=== PATIENT | female | born 1940 | race Caucasian/White ===

== ENCOUNTER → 2018-08-09 | Day surgery (SDC) | payer OTHER ==
--- NOTE | 2018-08-09 12:51 | RAD REPORT ---
EXAM DESCRIPTION: US - Guided FNA Non Breast - 08/09/2018 11:51 am CLINICAL HISTORY: ICD E 04.2 COMPARISON: June 2018 TECHNIQUE: Risks, benefits alternatives of procedure were explained to the patient informed consent obtained. The prior ultrasound was reviewed. Under sonographic guidance the 3.5 centimeter nodule within the le ft lobe was localized. Skin and subcutaneous tissues anesthetized lidocaine. Multiple 25 gauge needle passes were obtained into the left thyroid nodule and given to pathology. The patient experienced no immediate complication. IMPRESSION: Fine-needle aspiration of the dominant nodule within left lobe thyroid gland
== END ==
LOC: FNA 10:40
PROVIDERS: ATTEND Otolaryngology
PROC: 0G9G3ZX Drainage of Left Thyroid Gland Lobe, Percutaneous Approach, Diagnostic (ICD-10-PCS; principal; 2018-08-09)
PROC: BG44ZZZ Ultrasonography of Thyroid Gland (ICD-10-PCS; 2018-08-09)
DX: E04.2 Nontoxic multinodular goiter (principal)
CPT/HCPCS: 88161

== ENCOUNTER 2021-07-17 10:16 | Emergency (ER) | payer OTHER ==
--- NOTE | 2021-07-17 11:20 | RAD REPORT ---
EXAM DESCRIPTION: CT - Head C Spine Mpr Wo Con - 07/17/2021 10:45 am CLINICAL HISTORY: Head and neck injury status post fall. Head and neck pain COMPARISON: None. TECHNIQUE: Computed axial tomography of the head and cervical spine was obtained. Sagittal and coronal reconstruction was performed. All CT scans are performed using dose optimization technique as appropriate and may include automated exposure control or mA/KV adjustment according to patient size. FINDINGS: An intracranial bleed is not seen. The ventricles are normal in caliber. 5.2 centimeter fluid collection left temporal fossa has the appearance of an arachnoid cyst. A cervical fracture is not visualized. No dislocation is noted. Spondylosis involves the cervical spi ne 13 millimeter nodule right lobe. Thyroid 30 millimeter nodule left lobe thyroid. These were described on a 2018 ultrasound IMPRESSION: No acute intracranial abnormality is seen. A cervical fracture is not visualized. If the patient continues to have symptoms to suggest intracra nial /spinal cord pathology then MRI would be recommended
--- NOTE | 2021-07-17 11:35 | RAD REPORT ---
EXAM DESCRIPTION: CT - Facial Bones W/ Mpr - 07/17/2021 10:45 am CLINICAL HISTORY: Facial injury status post fall with facial pain COMPARISON: None TECHNIQUE: Computed axial tomography of the face was obtained. Coronal and sagittal reconstruction w as performed. All CT scans are performed using dose optimization technique as appropriate and may include automated exposure control or mA/KV adjustment according to patient size. FINDINGS: Left cheek/preseptal hematoma. Moderately displaced fractures involve the left zygomaticosphenoid suture. Mildly displaced fracture involves the zygomaticotemporal suture A TMJ dislocation is not noted. The globes are intact. Small amount of fluid within the sphenoid sinus IMPRESSION: Fractures involve the left zygomaticosphenoid and zygomaticotemporal sutures .
[2021-07-17] MEDS ORDERED: TETANUS & DIPHTHERIA TOX,ADULT 0.5 ML VIAL ONE (11:38)
[2021-07-17] MEDS ORDERED: LIDOCAINE 1% W/EPI 1:100,000 MDV 50 ML VIAL ONE (11:38)
--- NOTE | 2021-07-17 12:10 | ER ---
Nurse's Notes [facility] Name: Kathy Fuentes Age: 81 yrs Sex: Female : 1940 Arrival Date: 07/17/2021 Time: 10:21 Bed 20 Private MD: Adrian Mccormick V Diagnosis: Laceration without foreign body of left eyelid and periocular area;Displaced fractures involving the left zygomaticosphenoid and zygomaticotemporal sutures Presentation: 07/17 10:25 Chief complaint: Patient states: pt denies LOC. Chief complaint: Patient states: i tw2 tripped over some small genevieve and fell on the concrete hitting my face on the LEFT eye brow. and the cut is just too deep. i fell about 2 hours ago. Coronavirus screen: At this time, the client does not indicate any symptoms associated with coronavirus-19. Ebola Screen: Patient denies travel to an Ebola-affected area in the 21 days before illness onset. Initial Sepsis Screen: Does the patient meet any 2 criteria? No. Patient's initial sepsis screen is negative. Does the patient have a suspected source of infection? No. Patient's initial sepsis screen is negative. Risk Assessment: Do you want to hurt yourself or someone else? Patient reports no desire to harm self or others. Onset of symptoms was July 17, 2021. 10:25 Method Of Arrival: Ambulatory tw2 10:25 Acuity: SEGUNDO 3 tw2 10:29 Note provider SAMMY Akhtar in triage room performing assessment. tw2 Triage Assessment: 10:27 General: Appears in no apparent distress. slender, well groomed, Behavior is calm, tw2 cooperative, appropriate for age. Pain: Denies pain. EENT: swelling noted to left eye area and cheek. with laceration noted to LEFT eye brow. bleeding controlled with bandaid pt had applied prior to arrival.. Historical: - Allergies: 10:38 Levofloxacin; tw2 - Home Meds: 10:28 "vitamins" [Active]; tw2 - PMHx: 10:38 None; tw2 - PSHx: 10:28 hysterectomy; "partial"; Cholecystectomy; tw2 - Immunization history:: Last tetanus immunization: unknown. - Social history:: Smoking status: . Screenin:30 Abuse screen: Denies threats or abuse. Nutritional screening: No deficits noted. tw2 Tuberculosis screening: No symptoms or risk factors identified. Fall Risk None identified. Assessment: 10:56 Reassessment: Patient presents to ED with laceration to left eyebrow secondary to slip sl2 and fall. General: Appears in no apparent distress. well groomed, well developed, Behavior is calm, cooperative, appropriate for age. Pain: Complains of pain in Head and neck Pain does not radiate. Pain currently is 2 out of 10 on a pain scale. at worst was 5 out of 10 on a pain scale. level that patient reports is acceptable is 2 out of 10 on a pain scale. Neuro: No deficits noted. Level of Consciousness is awake, alert, obeys commands, Oriented to person, place, time, situation, Appropriate for age Boot Liner Maker are equal bilaterally Moves all extremities. Gait is steady, Speech is normal, Facial symmetry appears normal. Cardiovascular: No deficits noted. Respiratory: No deficits noted. GI: No deficits noted. No signs and/or symptoms were reported involving the gastrointestinal system. : No deficits noted. No signs and/or symptoms were reported regarding the genitourinary system. EENT: No deficits noted. No signs and/or symptoms were reported regarding the EENT system. Derm: No deficits noted. No signs and/or symptoms reported regarding the dermatologic system. Derm: Wound noted left eyebrow Wound is Laceration. Vital Signs: 10:25 BP 181 / 81; Pulse 81; Resp 17; Temp 98.3; Pulse Ox 100% on R/A; tw2 11:51 BP 179 / 85; Pulse 73; Resp 17; Pulse Ox 99% on R/A; mh5 12:00 BP 153 / 81; Pulse 75; Resp 18; Temp 98.2(O); Pulse Ox 99% on R/A; sl2 ED Course: 10:21 Patient arrived in ED. mr 10:22 Adrian Mccormick MD is Private Physician. mr 10:26 Hel[facility] Hopper [facility]C [facility] kb 10:26 Karen Noel MD is Attending Physician. kb 10:27 Triage completed. tw2 10:28 Arm band placed on. tw2 10:30 Patient maintains SpO2 saturation greater than 95% on room air. tw2 10:38 pt returned to ER main lobby at this time pending imaging. tw2 10:45 CT Head C Spine In Process Unspecified. EDMS 10:45 CT Facial Bones W/O Con In Process Unspecified. EDMS 10:55 Bailey Reyse, RN is Primary Nurse. sl2 10:57 Patient has correct armband on for positive identification. Bed in low position. Call mh5 light in reach. Side rails up X 1. Adult w/ patient. Pulse ox on. NIBP on. 11:40 Primary Nurse role handed off by Bailey Reyes, MARK 7 11:40 Mike Garsia, RN is Primary Nurse. [facility] 12:27 Assist provider with laceration repair. Patient did not have IV access during this 2 emergency room visit. Administered Medications: 11:43 Drug: Tetanus-Diphtheria Toxoid Adult 0.5 ml {Drug And Alcohol Counsellor: [employer]. Exp: jl7 01/21/2023. Lot #: [id number]. } Route: IM; Site: right deltoid; 12:25 Follow up: Response: No adverse reaction sl2 12:14 Drug: Augmentin (Amoxicillin-Clavulanate) 875 mg Route: PO; sl2 12:25 Follow up: Response: No adverse reaction 2 Outcome: 12:10 Discharge ordered by MD. kb 12:27 Discharged to home with family. sl2 12:27 Condition: stable 12:27 Discharge instructions given to patient, family, Instructed on discharge instructions, follow up and referral plans. no drinking with medication, medication usage, Demonstrated understanding of instructions, medications, wound care, Prescriptions given X 2. 12:27 Patient left the ED. 2 Signatures: Dispatcher [employer] EDOK Helene Hopper, SAMMY-Jo SPECTRAL SCIENTIST-Chon Hanksa Tabitha kumari Jessa Lew, RN RN 2 Belem Hung [facility] Mike Garsia, MARK RN jl7 Bailey Reyes, RN RN 2 Corrections: (The following items were deleted from the chart) 10:30 10:25 Chief complaint: Patient states: i tripped over some small genevieve and fell on tw2 the concrete hitting my face on the LEFT eye brow. and the cut is just too deep. tw2 10:30 10:27 EENT: swelling noted to left eye area and cheek. with laceration noted to LEFT tw2 eye brow.. tw2 10:38 10:25 Acuity: SEGUNDO 4 tw2 10:38 10:38 Allergies: No Known Allergies; 10 10:38 Allergies: Levaquin;
--- NOTE | 2021-07-17 12:10 | EDPHYS ---
Physician Documentation [facility] Name: Kathy Fuentes Age: 81 yrs Sex: Female : 1940 Arrival Date: 07/17/2021 Time: 10:21 Bed 20 Private MD: Adrian Mccormick V ED Physician Karen Noel HPI: 07/17 12:12 This 81 yrs old Female presents to ER via Ambulatory with complaints of Fall kb Injury, Laceration To Scalp/Face. 12:12 Details of fall: The patient fell from an upright position, while walking. Onset: The kb symptoms/episode began/occurred 2 hour(s) ago. Associated injuries: The patient sustained injury to the head, contusion, hematoma, laceration, 2 cm(s), of the left supraorbital ridge, pain, swelling, tenderness. Severity of symptoms: At their worst the symptoms were moderate, in the emergency department the symptoms are unchanged. The patient has not experienced similar symptoms in the past. The patient has not recently seen a physician. Pt states she slipped on the [place] outside and fell, hitting eye. States "I wasn't going to come in but the cut looked deep like I might need stitches." Denies any visual changes. EOM intact. Historical: - Allergies: 10:38 Levofloxacin; tw2 - Home Meds: 10:28 "vitamins" [Active]; tw2 - PMHx: 10:38 None; tw2 - PSHx: 10:28 hysterectomy; "partial"; Cholecystectomy; tw2 - Immunization history:: Last tetanus immunization: unknown. - Social history:: Smoking status: . ROS: 11:31 Constitutional: Negative for fever, chills, and weight loss. kb 11:31 Skin: Positive for ecchymosis, laceration(s), swelling, of the left eye. 11:31 All other systems are negative. Exam: 11:31 Constitutional: This is a well developed, well nourished patient who is awake, alert, kb and in no acute distress. ENT: Moist Mucous membranes Respiratory: Respirations even and unlabored. No increased work of breathing, no retractions or nasal flaring. Abdomen/GI: Soft, non-tender. No distention MS/ Extremity: Pulses equal, no cyanosis. Neurovascular intact. Full, normal range of motion. Neuro: Awake and alert, GCS 15, oriented to person, place, time, and situation. Moves all extremities. Normal gait. Psych: Awake, alert, with orientation to person, place and time. Behavior, mood, and affect are within normal limits. 11:31 Skin: injury, laceration(s), the wound is approximately 2 cm(s), of the left supraorbital ridge, that can be described as clean, no foreign body, linear, without bleeding. Vital Signs: 10:25 BP 181 / 81; Pulse 81; Resp 17; Temp 98.3; Pulse Ox 100% on R/A; tw2 11:51 BP 179 / 85; Pulse 73; Resp 17; Pulse Ox 99% on R/A; mh5 12:00 BP 153 / 81; Pulse 75; Resp 18; Temp 98.2(O); Pulse Ox 99% on R/A; sl2 Laceration: 12:07 Wound Repair of 2cm ( 0.8in ) subcutaneous laceration to left supraorbital ridge. kb Linear shaped.. Distal neuro/vascular/tendon intact. Anesthesia: Wound infiltrated with 2 mls of 1% lidocaine w/ Epi. Wound prep: Moderate cleansing with betadine by me, Wound irrigation with saline by me. Skin closed with 4 5-0 fast absorbing gut using simple sutures and sterile technique. Patient tolerated well. MDM: 10:26 Patient medically screened. 11:31 Data reviewed: vital signs, nurses notes. Data interpreted: Pulse oximetry: on room air kb is 100 %. Interpretation: normal. Counseling: I had a detailed discussion with the patient and/or guardian regarding: the historical points, exam findings, and any diagnostic results supporting the discharge/admit diagnosis, radiology results, the need for outpatient follow up, a family practitioner, to return to the emergency department if symptoms worsen or persist or if there are any questions or concerns that arise at home. 12:11 ED course: Discussed case with ERP, recommends outpatient treatment. Discussed plan of kb care including follow up with OMFS with pt and family. All in agreement with plan. 12:13 ED course: RESIDENTIAL SOLAR CONSULTANT aware reviewed. No prescriptions found. kb 07/17 10:27 Order name: CT Head C Spine; Complete Time: 11:23 kb 07/17 10:27 Order name: CT Facial Bones W/O Con; Complete Time: 11:36 kb 07/17 10:27 Order name: Dressing - Wound; Complete Time: 12:25 kb 07/17 10:27 Order name: Gloves, Sterile; Complete Time: 10:53 kb 07/17 10:27 Order name: Setup Suture Tray; Complete Time: 10:53 kb Administered Medications: 11:43 Drug: Tetanus-Diphtheria Toxoid Adult 0.5 ml {Podiatrist: [employer]. Exp: jl7 01/21/2023. Lot #: [id number]. } Route: IM; Site: right deltoid; 12:25 Follow up: Response: No adverse reaction sl2 12:14 Drug: Augmentin (Amoxicillin-Clavulanate) 875 mg Route: PO; sl2 12:25 Follow up: Response: No adverse reaction sl2 Disposition Summary: 07/17/21 12:10 Discharge Ordered Location: Home kb Condition: Stable kb Diagnosis - Laceration without foreign body of left eyelid and periocular area kb - Displaced fractures involving the left zygomaticosphenoid and zygomaticotemporal kb sutures Followup: kb - With: Emergency Department - When: As needed - Reason: Worsening of condition Followup: kb - With: Private Physician - When: 2 - 3 days - Reason: Recheck today's complaints, Continuance of care, Re-evaluation by your physician Discharge Instructions: - Discharge Summary Sheet kb - Zygoma Fracture kb - Facial Laceration, [id number] kb Forms: - Medication Reconciliation Form kb - Thank You Letter kb - Antibiotic Education kb - Prescription Opioid Use kb Prescriptions: - Augmentin 875-125 mg Oral Tablet - take 1 tablet by ORAL route every 12 hours for 10 days; 20 tablet; Refills: 0, kb Product Selection Permitted - Tramadol 50 mg Oral Tablet - take 1 tablet by ORAL route every 8 hours as needed; 12 tablet; Refills: 0, kb Product Selection Permitted Addendum: 07/19/2021 08:35 Co-signature as Attending Physician, Karen Noel MD I agree with the assessment and s p3 plan of care. Signatures: Dispatcher [employer] EDLA Helene Hopper, SAMMY-C SAMMY-Jessa Santos RN RN tw2 Mike Garsia RN RN jl7 Karen Noel MD MD sp3 Bailey Reyes RN RN sl2 Corrections: (The following items were deleted from the chart) 07/17 10:38 Allergies: No Known Allergies; 10:38 Allergies: Levaquin;
[2021-07-17] MEDS ORDERED: AMOX/K CLAV 875 MG TAB ONE (12:12)
[2021-07-17 13:04] VITALS: O2SAT 99
[2021-07-17 13:05] VITALS: BP 153/81; TEMP 98.2
--- OUTSIDE RECORDS SUMMARY | 2021-07-23 15:04 | XMS REPORT | Continuity of Care Document ---
:1940 Author Organization [facility] t Address [address] [place] [address] Dr. Swanson [address] [place] [id number] Care Team Providers Name Role Phone FRANNY Attending Clinician Unavailable Payers Payer Name Policy Type Policy Number Effective Date Expiration Date S annmarie MEDICARE PART A [id number] 2007 \T\ B 00:00:00 [employer] IN[employer] [id number] 2013 00:00:00 Problems This patient has no known problems. Allergies, Adverse Reactions, Alerts Allergy Allergy Status Severity Reaction(s) Onset Inactive Treating Comm ents Source Name Type Date Date Clinician LEVOFLOX DRUG Active Unknown-Cmnt 2015-09 Un eddi ACIN INGREDI 09-10 ity of 00:00: [address] Medications This patient has no known medications. Procedures This patient has no known procedures. Encounters Start End Encounter Admission Attending Care Care Encounter Source Date/Time Date/Time Type Type Clinicians Facility Department ID 2020-05-22 2020-05-22 Outpatient Betty BLANTON [facility] [id number] 16:40:00 16:40:00 [facility] Results This patient has no known results.
== END 2021-07-17 12:27 | disposition home or self-care (01) ==
LOC: ER 10:16
PROC: 08QPXZZ Repair Left Upper Eyelid, External Approach (ICD-10-PCS; principal; 2021-07-17)
DX: S01.112A Laceration without foreign body of left eyelid and periocular area, initial encounter (principal); S02.40FA Zygomatic fracture, left side, initial encounter for closed fracture; W01.0XXA Fall on same level from slipping, tripping and stumbling without subsequent striking against object, initial encounter; Y92.009 Unspecified place in unspecified non-institutional (private) residence as the place of occurrence of the external cause; Z23 Encounter for immunization
CPT/HCPCS: 70450; 70486; 72125; 76377; 90471; 90714; 99284